=== PATIENT | female | born 1985 | race African-American/Black ===

== ENCOUNTER 2020-03-03 01:39 | Emergency (ER) | payer OTHER ==
[2020-03-03 01:44] VITALS: BMI 33.8
[2020-03-03] MEDS ORDERED: SODIUM CHLORIDE 0.9% 500 ML INFUS.BAG IV ONE (01:58)
[2020-03-03] MEDS ORDERED: ONDANSETRON 4 MG/2 ML VIAL IVPUSH ONE (01:58)
--- NOTE | 2020-03-03 02:02 | PDOC ---
History of Present Illness - General Chief Complaint: Pain, Acute Stated Complaint: FLANK PAIN Time Seen by Provider: 03/03/20 01:48 History Source: Patient - History of Present Illness Initial Comments: 03/03/20 02:58 35-year-old female complaining of right flank pain and dysuria for 1 day. Patient reported that the flank pain got more severe tonight prior to arrival. Patient is a [employer] employee. Patient reports nausea denies vomiting, abdominal pain, frequency of urination. No past medical history Past History - Medical History Allergies/Adverse Reactions: Allergies Allergy/AdvReac Type Severity Reaction Status Date / Time No Known Allergies Allergy Verified 03/03/20 01:44 Home Medications: Ambulatory Orders Ferrous Sulfate 325 mg PO DAILY 12/14/12 Ibuprofen [Motrin -] 600 mg PO QID PRN #28 tablet 12/18/13 Cephalexin [Keflex] 500 mg PO QID #16 capsule 12/25/13 Labetalol HCl [Normodyne -] 100 mg PO BID 12/25/13 Vit/Iron Fum/Folic AC [ Tablet] 1 each PO DAILY 12/25/13 Cefdinir [Omnicef -] 300 mg PO BID #20 capsule 03/03/20 Asthma: No Cancer: No Cardiac Disorders: No Diabetes: Yes (Type 2, not on meds) HTN: Yes Seizures: No Thyroid Disease: No - Reproductive History Is Patient Now?: No (#): 1 Para: 0 Cervical CA: No Dysfunctional Uterine Bleeding: No Ectopic : No Endometrial CA: No Polycystic Ovaries: No Therapeutic (s) & number: No Tubal Ligation: No Spontaneous : 0 - Psycho-Social/Smoking History Smoking Status: Yes Smoking History: Never smoked Have you smoked in the past 12 months: No Number of Cigarettes Smoked Daily: 6 Information on smoking cessation initiated: No 'Breaking Loose' booklet given: 12/25/13 - Substance Abuse Hx (Audit-C & DAST Scrn) How often the patient has a drink containing alcohol: Never Score: In Men: 4 or > Positive; In Women: 3 or > Positive: 0 Screen Result (Pos requires Nsg. Audit-10AR): Negative In the last yr the pt used illegal drug/Rx for NonMed reason: No Score: Yes response is considered Positive: 0 Screen Result (Positive result requires Nsg. DAST-10): Negative *Physical Exam - Vital Signs Last Vital Signs Temp Pulse Resp BP Pulse Ox 98.4 F 92 H 20 165/105 H 100 03/03/20 01:43 03/03/20 01:43 03/03/20 01:43 03/03/20 01:43 03/03/20 01:43 - Physical Exam General Appearance: Yes: Appropriately Dressed Respiratory/Chest: positive: Lungs Clear, Normal Breath Sounds Cardiovascular: positive: Regular Rhythm, Regular Rate Gastrointestinal/Abdominal: positive: Normal Bowel Sounds, Soft. negative: Tender (no abdominal tenderness) Musculoskeletal: positive: CVA Tenderness (R) Extremity: positive: Normal Capillary Refill, Normal Inspection, Normal Range of Motion Integumentary: positive: Normal Color, Dry, Warm Neurologic: positive: Fully Oriented, Alert, Normal Mood/Affect ED Treatment Course - LABORATORY CBC & Chemistry Diagram: 03/03/20 02:00 03/03/20 03:16 ED Progress Note - Progress Note Progress Note: 03/03/20 03:11 A: Pyelonephritis P: labs UA IVF zofran ceftrixone Discharge - Discharge Information Problems reviewed: Yes Clinical Impression/Diagnosis: Pyelonephritis Disposition: HOME - Additional Discharge Information Prescriptions: Cefdinir [Omnicef -] 300 mg PO BID #20 capsule - Follow up/Referral Referrals: Evin Rodriguez PA [Primary Care Provider] - - Patient Discharge Instructions Patient Printed Discharge Instructions: Kidney Infection Additional Instructions: Drink plenty of fluids Take ibuprofen every 6 hours as needed for pain Take cefdinir as prescribed Follow-up with your primary care doctor as soon as possible. You need to repeat urine test once your antibiotic is completed. We will call you if you're antibiotic needs to be changed. - Post Discharge Activity Work/Back to School Note: Back to Work
[2020-03-03] MEDS ORDERED: ONDANSETRON 4 MG/2 ML VIAL ONE (02:11)
[2020-03-03 02:40] LABS: BASO % 0.7 % (0-2.0); EOS % 1.9 % (0-4.5); HEMATOCRIT 35.7 % (32.4-45.2); HEMOGLOBIN 11.8 GM/dL (10.7-15.3); LYMPH % 18.9 % (8-40); MCH 36.6 pg (25.7-33.7); MCHC 32.9 g/dl (32.0-36.0); MEAN CELL VOLUME 111.1 fl (80-96); MEAN PLT VOLUME 7.6 fl (7.5-11.1); MONO % 8.9 % (3.8-10.2); NEUT % 69.6 % (42.8-82.8); PLATELET COUNT 179 K/MM3 (134-434); RBC 3.22 M/mm3 (3.60-5.2); RDW 16.5 % (11.6-15.6); WHITE BLOOD COUNT 6.7 K/mm3 (4.0-10.0)
[2020-03-03 02:43] LABS: EPI CELLS 25 /uL (0-25.1); HYALINE CASTS 5 /uL (0-3.1); PH,URINE 5.5 (5.0-8.0); URINE APPEARANCE TURBID; URINE BACTERIA >9,000 /uL (0-1359); URINE BILIRUBIN NEGATIVE (NEGATIVE); URINE COLOR DK YELLOW; URINE GLUCOSE (UA) NEGATIVE (NEGATIVE); URINE KETONE NEGATIVE (NEGATIVE); URINE LEUK ESTERASE 2+ (NEGATIVE); URINE NITRITE POSITIVE (NEGATIVE); URINE PROTEIN 3+ (NEGATIVE); URINE RBC 1770 /uL (0-23.9); URINE WBC 3113 /uL (0-25.8)
[2020-03-03] MEDS ORDERED: CEFTRIAXONE 1,000 MG in DEXTROSE 5%-WATER - 50 ML IVPB ONE (02:52)
[2020-03-03] MEDS ORDERED: CEFTRIAXONE 1 GM/50 ML BAG ONE (02:55)
[2020-03-03 04:00] LABS: ALBUMIN 3.3 g/dl (3.4-5.0); BILIRUBIN,TOTAL 0.3 mg/dL (0.2-1); BLOOD UREA NITROGEN 5.9 mg/dL (7-18); CALCIUM 8.5 mg/dL (8.5-10.1); CREATININE 0.7 mg/dL (0.55-1.3); POTASSIUM 3.5 mmol/L (3.5-5.1)
[2020-03-03 04:05] LABS: TOT PROT 6.6 g/dl (6.4-8.2)
[2020-03-03 04:25] VITALS: BP 153/95; PULSE 89; TEMP 98.1
== END 2020-03-03 04:40 | disposition home or self-care (01) ==
LOC: JER 01:39
PROC: 3E03329 Introduction of Other Anti-infective into Peripheral Vein, Percutaneous Approach (ICD-10-PCS; principal; 2020-03-03)
PROC: 3E033GC Introduction of Other Therapeutic Substance into Peripheral Vein, Percutaneous Approach (ICD-10-PCS; 2020-03-03)
DX: N11.1 Chronic obstructive pyelonephritis (principal)
CPT/HCPCS: 36415; 80053; 81003; 84703; 85025; 87086; 87186; 99284-25

== ENCOUNTER 2021-08-19 06:10 | Inpatient (IN) | payer OTHER ==
[2021-08-19] MEDS: ELECTROLYTE-148 SOLN 1,000 ML IV SCH ×2 (06:45→09:45)
[2021-08-19 07:04] LABS: BASO % 0.2 % (0-2.0); HEMOGLOBIN 10.6 GM/dL (10.7-15.3); LYMPH % 30.6 % (8-40); MCH 35.3 pg (25.7-33.7); MCHC 35.2 g/dl (32.0-36.0); MEAN CELL VOLUME 100.1 fl (80-96); MEAN PLT VOLUME 7.4 fl (7.5-11.1); MONO % 9.1 % (3.8-10.2); NEUT % 58.1 % (42.8-82.8); PLATELET COUNT 134 10^3/uL (134-434); RDW 15.8 % (11.6-15.6); WHITE BLOOD COUNT 4.1 K/mm3 (4.0-10.0)
[2021-08-19 07:19] LABS: CALCIUM 9.3 mg/dL (8.5-10.1)
[2021-08-19 07:20] LABS: BLOOD UREA NITROGEN 10.3 mg/dL (7-18)
[2021-08-19 07:23] LABS: CREATININE 0.5 mg/dL (0.55-1.3)
[2021-08-19 07:25] LABS: BILIRUBIN,TOTAL 0.5 mg/dL (0.2-1); TOT PROT 7.3 g/dl (6.4-8.2)
[2021-08-19 08:50] VITALS: BMI 35.0
[2021-08-19 08:52] LABS: ACTIVATED PTT 33.8 SECONDS (25.2-36.5); INR 0.97 (0.83-1.09); PROTHROMBIN TIME (PATIENT) 11.1 SEC (9.7-13.0)
[2021-08-19] MEDS ORDERED: OXYTOCIN 20 UNITS in 0.9% NS 20 UNIT/1,000 ML INFUS.BAG IV ONE (09:56)
[2021-08-19] MEDS ORDERED: morphine SULFATE/PF 1 MG/2 ML (2cc Syringe - QUVA) ONE (09:57)
[2021-08-19] MEDS ORDERED: BENZOCAINE 20% 57 GM BOTTLE TP PRN (10:13)
[2021-08-19] MEDS ORDERED: BENZOCAINE 28 GM HEMORRHOIDAL OINTMENT TP PRN (10:13)
[2021-08-19] MEDS ORDERED: METHYLERGONOVINE MALEATE 0.2 MG/1 ML AMP IM PRN (10:13)
[2021-08-19] MEDS ORDERED: ceFAZolin SODIUM 1 GM VIAL ONE (10:16)
[2021-08-19] MEDS ORDERED: ePHEDrine SULFATE 50 MG/1 ML AMPULE ONE (10:17)
[2021-08-19] MEDS ORDERED: PHENYLEPHRINE HCL 10 MG/1 ML SINGLE DOSE VIAL ONE (10:18)
[2021-08-19] MEDS ORDERED: OXYTOCIN 10 UNITS/ML VIAL ONE (10:27)
[2021-08-19] MEDS ORDERED: ONDANSETRON 4 MG/2 ML VIAL ONE (10:32)
[2021-08-19] MEDS ORDERED: MIDAZOLAM HCL 2 MG/2 ML SINGLE DOSE VIAL ONE (10:46)
[2021-08-19 11:44] LABS: CORD BASE EXCESS -1.4 mmol/L (0-2); CORD PCO2 61.3 mmHg (30-78); CORD pH 7.261 (7.14-7.44)
[2021-08-19] MEDS ORDERED: ONDANSETRON 4 MG/2 ML VIAL IVPUSH PRN (11:46)
[2021-08-19 11:47] LABS: CORD BASE EXCESS -4.2 mmol/L (0-2); CORD HCO3 21.4 mmHg (20-29); CORD PCO2 41.3 mmHg (30-78); CORD pH 7.333 (7.14-7.44)
[2021-08-19] MEDS: IBUPROFEN 800 MG/8 ML IJ IVPB PRN (16:22)
[2021-08-19 16:47] LABS: SYPHILIS W/ RPR CONF NON-REACTIVE (NONREACTIVE)
[2021-08-19 17:16] LABS: HIV INTERPRETATION NEGATIVE (NEGATIVE)
[2021-08-19] MEDS: OXYTOCIN 20 UNITS in 0.9% NS 20 UNIT/1,000 ML INFUS.BAG IV SCH (19:23)
[2021-08-19] MEDS ORDERED: PATIENT'S OWN MEDICATION (NON-FORMULARY) (Ferrous Sulfate [Ferrous Sulfate] 325 MG Tablet) PO SCH (22:00)
[2021-08-19] MEDS ORDERED: oxyCODONE HCL 5 MG TABLET PO PRN ×2 (22:13)
[2021-08-19] MEDS: FERROUS SO4 325 MG TABLET (FP) PO SCH (22:21)
[2021-08-19] MEDS: SIMETHICONE 80 MG TAB.CHEW (FP) PO PRN (22:22)
[2021-08-20] MEDS: IBUPROFEN 800 MG/8 ML IJ IVPB PRN (02:59)
[2021-08-20] MEDS: SIMETHICONE 80 MG TAB.CHEW (FP) PO PRN ×2 (06:26→20:42)
[2021-08-20 09:27] LABS: BASO % 0.2 % (0-2.0); EOS % 0.2 % (0-4.5); HEMATOCRIT 22.7 % (32.4-45.2); MCH 35.4 pg (25.7-33.7); MCHC 35.1 g/dl (32.0-36.0); MEAN CELL VOLUME 100.8 fl (80-96); MEAN PLT VOLUME 7.1 fl (7.5-11.1); MONO % 7.2 % (3.8-10.2); NEUT % 80.4 % (42.8-82.8); PLATELET COUNT 96 10^3/uL (134-434); RBC 2.25 M/mm3 (3.60-5.2); RDW 15.9 % (11.6-15.6); WHITE BLOOD COUNT 7.1 K/mm3 (4.0-10.0)
[2021-08-20] MEDS: IBUPROFEN 600 MG TABLET (FP) PO PRN ×2 (09:33→15:08)
[2021-08-20] MEDS: FERROUS SO4 325 MG TABLET (FP) PO SCH ×2 (09:34→21:44)
[2021-08-20] MEDS: PRENATAL VITAMINS W/ FOLIC ACID TABLET (FP) PO SCH (09:34)
[2021-08-20] MEDS ORDERED: PATIENT'S OWN MEDICATION (NON-FORMULARY) (Prenatal Vit/Iron Fum/Folic Ac [Prenatal Tablet] PO SCH (10:00)
[2021-08-20] MEDS ORDERED: BISACODYL 10 MG SUPP.RECT RC PRN (10:13)
[2021-08-20] MEDS: METOPROLOL TARTRATE 25 MG TABLET (FP) PO SCH (11:01)
[2021-08-20] MEDS: OXYTOCIN 20 UNITS in 0.9% NS 20 UNIT/1,000 ML INFUS.BAG IV SCH (20:30)
[2021-08-20] MEDS: ACETAMINOPHEN 325 MG TABLET (FP) PO PRN (20:41)
[2021-08-20] MEDS: SENNOSIDES/DOCUSATE COMBO (SENNA PLUS) TABLET (UD) PO PRN (21:44)
[2021-08-21] MEDS: IBUPROFEN 600 MG TABLET (FP) PO PRN ×3 (03:34→13:54)
[2021-08-21 08:00] LABS: BASO % 0.1 % (0-2.0); EOS % 1.1 % (0-4.5); HEMATOCRIT 22.8 % (32.4-45.2); LYMPH % 11.1 % (8-40); MCH 35.8 pg (25.7-33.7); MCHC 35.2 g/dl (32.0-36.0); MEAN CELL VOLUME 101.7 fl (80-96); MEAN PLT VOLUME 7.1 fl (7.5-11.1); MONO % 6.3 % (3.8-10.2); NEUT % 81.4 % (42.8-82.8); PLATELET COUNT 105 10^3/uL (134-434); RBC 2.24 M/mm3 (3.60-5.2); RDW 15.7 % (11.6-15.6); WHITE BLOOD COUNT 7.1 K/mm3 (4.0-10.0)
[2021-08-21 08:08] LABS: CREATININE 0.5 mg/dL (0.55-1.3); TOT PROT 5.6 g/dl (6.4-8.2)
[2021-08-21 08:10] LABS: BILIRUBIN,TOTAL 0.4 mg/dL (0.2-1)
[2021-08-21 08:12] LABS: ALBUMIN 2.2 g/dl (3.4-5.0); CALCIUM 7.7 mg/dL (8.5-10.1)
[2021-08-21] MEDS: SIMETHICONE 80 MG TAB.CHEW (FP) PO PRN ×2 (08:29→19:50)
[2021-08-21] MEDS: FERROUS SO4 325 MG TABLET (FP) PO SCH ×2 (09:12→21:27)
[2021-08-21] MEDS: PRENATAL VITAMINS W/ FOLIC ACID TABLET (FP) PO SCH (09:12)
[2021-08-21] MEDS: METOPROLOL TARTRATE 25 MG TABLET (FP) PO SCH (09:13)
[2021-08-21] MEDS: SENNOSIDES/DOCUSATE COMBO (SENNA PLUS) TABLET (UD) PO PRN (19:50)
[2021-08-21] MEDS: ACETAMINOPHEN 325 MG TABLET (FP) PO PRN (19:51)
[2021-08-22] MEDS: IBUPROFEN 600 MG TABLET (FP) PO PRN ×3 (05:53→21:58)
[2021-08-22] MEDS: SIMETHICONE 80 MG TAB.CHEW (FP) PO PRN ×2 (05:53→21:58)
[2021-08-22 08:03] LABS: BASO % 0.2 % (0-2.0); HEMATOCRIT 24.3 % (32.4-45.2); HEMOGLOBIN 8.3 GM/dL (10.7-15.3); LYMPH % 9.3 % (8-40); MCH 34.8 pg (25.7-33.7); MCHC 33.9 g/dl (32.0-36.0); MEAN CELL VOLUME 102.6 fl (80-96); MEAN PLT VOLUME 7.3 fl (7.5-11.1); MONO % 4.5 % (3.8-10.2); PLATELET COUNT 122 10^3/uL (134-434); RBC 2.37 M/mm3 (3.60-5.2); RDW 15.7 % (11.6-15.6); WHITE BLOOD COUNT 9.2 K/mm3 (4.0-10.0)
[2021-08-22] MEDS: PRENATAL VITAMINS W/ FOLIC ACID TABLET (FP) PO SCH (10:19)
[2021-08-22] MEDS: METOPROLOL TARTRATE 25 MG TABLET (FP) PO SCH (10:19)
[2021-08-22] MEDS: FERROUS SO4 325 MG TABLET (FP) PO SCH ×2 (10:19→21:55)
[2021-08-22] MEDS: SENNOSIDES/DOCUSATE COMBO (SENNA PLUS) TABLET (UD) PO PRN (21:55)
[2021-08-23 09:16] VITALS: BP 138/81; PULSE 97; TEMP 97.8
[2021-08-23] MEDS: IBUPROFEN 600 MG TABLET (FP) PO PRN (09:30)
[2021-08-23] MEDS: PRENATAL VITAMINS W/ FOLIC ACID TABLET (FP) PO SCH (09:30)
[2021-08-23] MEDS: FERROUS SO4 325 MG TABLET (FP) PO SCH (09:30)
[2021-08-23] MEDS: SIMETHICONE 80 MG TAB.CHEW (FP) PO PRN (09:30)
[2021-08-23] MEDS: METOPROLOL TARTRATE 25 MG TABLET (FP) PO SCH (10:53)
[2021-08-23] MEDS ORDERED: AMOX TR/POT CLAV 875MG/125MG TABLETS (FP) PO ONE (11:00)
== END 2021-08-23 13:12 | disposition home or self-care (01) | DRG 540 ==
LOC: JLDR 06:10 → J3W 12:45
PROVIDERS: ADMIT Obstetrics & Gynecology; ATTEND Obstetrics & Gynecology
PROC: 10D00Z1 Extraction of Products of Conception, Low, Open Approach (ICD-10-PCS; principal; 2021-08-19)
PROC: 0UT70ZZ Resection of Bilateral Fallopian Tubes, Open Approach (ICD-10-PCS; 2021-08-19)
PROC: 0UB00ZZ Excision of Right Ovary, Open Approach (ICD-10-PCS; 2021-08-19)
DX: O34.211 Maternal care for low transverse scar from previous cesarean delivery (principal); O99.02 Anemia complicating childbirth; D62 Acute posthemorrhagic anemia; Z3A.38 38 weeks gestation of pregnancy; Z37.0 Single live birth; O16.4 Unspecified maternal hypertension, complicating childbirth
CPT/HCPCS: 36415; 36600; 80053; 82803; 85025; 85610; 85730; 86762; 86780; 86850; 86900; 86901; 87340; 87389; 88302-TC; 88307-TC; C9803; U0003; U0005

== ENCOUNTER 2022-04-24 07:12 | Emergency (ER) | payer OTHER ==
[2022-04-24 07:26] VITALS: BMI 34.9
[2022-04-24] MEDS ORDERED: ALBUTEROL SO4 2.5/IPRATROPIUM 0.5 INH SOL 3 ML VIAL.NEB. NEB ONE ×4 (07:53→09:35)
[2022-04-24] MEDS ORDERED: ACETAMINOPHEN 500 MG TABLET (FP) PO ONE (07:53)
[2022-04-24] MEDS ORDERED: SODIUM CHLORIDE 1,000 ML IV STA (08:05)
[2022-04-24] MEDS ORDERED: ACETAMINOPHEN 500 MG TABLET (FP) ONE (08:12)
[2022-04-24 08:46] VITALS: RESP 20
[2022-04-24 08:50] LABS: VENOUS BASE EXCESS -0.8 mmol/L (-2-2); VENOUS O2 SATURATION 84.4 % (70-80); VENOUS PCO2 38.5 mmHg (38-52); VENOUS PH 7.406 (7.310-7.410)
[2022-04-24 08:54] LABS: BASO % 0.2 % (0-2.0); EOS % 3.9 % (0-4.5); HEMOGLOBIN 11.3 GM/dL (10.7-15.3); LYMPH % 13.3 % (8-40); MCH 31.4 pg (25.7-33.7); MCHC 33.3 g/dl (32.0-36.0); MEAN CELL VOLUME 94.2 fl (80-96); MEAN PLT VOLUME 6.6 fl (7.5-11.1); MONO % 7.3 % (3.8-10.2); NEUT % 75.3 % (42.8-82.8); PLATELET COUNT 246 10^3/uL (134-434); RBC 3.61 M/mm3 (3.60-5.2); RDW 14.9 % (11.6-15.6); WHITE BLOOD COUNT 6.5 K/mm3 (4.0-10.0)
[2022-04-24 09:03] VITALS: PULSE 104
[2022-04-24 09:04] LABS: CALCIUM 9.1 mg/dL (8.5-10.1)
[2022-04-24 09:05] LABS: ALBUMIN 3.9 g/dl (3.4-5.0); BLOOD UREA NITROGEN 6.6 mg/dL (7-18); MAGNESIUM 1.7 mg/dL (1.8-2.4)
[2022-04-24 09:07] LABS: CREATININE 0.7 mg/dL (0.55-1.3)
[2022-04-24 09:09] LABS: BILIRUBIN,TOTAL 0.5 mg/dL (0.2-1); TOT PROT 7.8 g/dl (6.4-8.2)
[2022-04-24] MEDS ORDERED: DEXAMETHASONE SOD PHOSPHATE 10 MG/1 ML VIAL IVPUSH ONE (10:10)
[2022-04-24] MEDS ORDERED: DEXAMETHASONE SOD PHOSPHATE 10 MG/1 ML VIAL ONE (10:17)
[2022-04-24 11:05] VITALS: BP 142/83; TEMP 97.5
== END 2022-04-24 11:20 | disposition home or self-care (01) ==
LOC: JER 07:12
PROC: 3E0F7GC Introduction of Other Therapeutic Substance into Respiratory Tract, Via Natural or Artificial Opening (ICD-10-PCS; principal; 2022-04-24)
PROC: 3E0337Z Introduction of Electrolytic and Water Balance Substance into Peripheral Vein, Percutaneous Approach (ICD-10-PCS; 2022-04-24)
PROC: 3E033GC Introduction of Other Therapeutic Substance into Peripheral Vein, Percutaneous Approach (ICD-10-PCS; 2022-04-24)
DX: R06.02 Shortness of breath (principal); J06.9 Acute upper respiratory infection, unspecified; R05.1 Acute cough
CPT/HCPCS: 0241U-QW; 36415; 71046-TC-FY; 80053; 82010; 82803; 83735; 84703; 85025; 93005; 93010; 99284-25; J1100

== ENCOUNTER 2024-08-30 05:23 | Day surgery (SDC) | payer OTHER ==
[2024-08-28 11:10] VITALS: BMI 28.3
[2024-08-30] MEDS ORDERED: PROPOFOL 20 ML ONE ×2 (10:56→13:23)
[2024-08-30] MEDS ORDERED: LIDOCAINE HCL/PF 2% SDV 5ML VIAL ONE (10:56)
[2024-08-30] MEDS ORDERED: MIDAZOLAM HCL 2 MG/2 ML SINGLE DOSE VIAL ONE ×2 (10:57→10:59)
[2024-08-30] MEDS ORDERED: KETOROLAC TROMETHAMINE 30 MG/1 ML VIAL ONE (10:58)
[2024-08-30] MEDS ORDERED: ONDANSETRON 4 MG/2 ML VIAL ONE (10:58)
[2024-08-30] MEDS ORDERED: DEXAMETHASONE SOD PHOSPHATE 4 MG/1 ML VIAL ONE (10:58)
[2024-08-30] MEDS ORDERED: ceFAZolin SODIUM 1 GM VIAL ONE (10:58)
[2024-08-30] MEDS ORDERED: LIDOCAINE HCL 1%, 10 MG/ML (20ML VIAL) ONE (11:04)
[2024-08-30] MEDS ORDERED: BUPIVACAINE HCL/PF 0.5% (5MG/ML) 10 ML VIAL ONE (11:04)
[2024-08-30] MEDS ORDERED: ACETAMINOPHEN INJECTION 100 ML ONE (11:38)
[2024-08-30] MEDS ORDERED: GLYCOPYRROLATE 0.2 MG/1 ML VIAL ONE (11:40)
[2024-08-30] MEDS ORDERED: ALBUTEROL SO4 HFA INHALER IH ONE (11:40)
[2024-08-30] MEDS ORDERED: ROCURONIUM BROMIDE 50 MG/5 ML SYRINGE ONE ×2 (11:43→12:42)
[2024-08-30] MEDS: ceFAZolin SODIUM 1 GM VIAL IVPB ONE (11:57)
[2024-08-30] MEDS ORDERED: HYDROmorphone HCl 2 MG/ML VIAL ONE (12:11)
[2024-08-30] MEDS ORDERED: oxyCODONE HCL 5 MG TABLET PO PRN ×2 (12:36)
[2024-08-30] MEDS: BUPIVACAINE HCL/PF 0.5% (5MG/ML) 10 ML VIAL IJ ONE (13:00)
[2024-08-30] MEDS: LIDOCAINE HCL 1%, 10 MG/ML (20ML VIAL) INF ONE (13:00)
[2024-08-30] MEDS ORDERED: SUGAMMADEX SODIUM 200 MG/2 ML VIAL ONE (13:25)
[2024-08-30] MEDS: LACTATED RINGERS SOLUTION 1,000 ML IV SCH (14:14)
[2024-08-30 15:06] VITALS: RESP 18
[2024-08-30] MEDS ORDERED: PROMETHAZINE HCL 25 MG/1 ML VIAL ONE (16:04)
[2024-08-30] MEDS: PROMETHAZINE HCL 25 MG/1 ML VIAL IVPB PRN (16:15)
[2024-08-30 18:25] VITALS: BP 172/86; PULSE 87; TEMP 97.3
== END 2024-08-30 18:29 | disposition home or self-care (01) ==
LOC: JASU-SURG 05:23
PROVIDERS: ATTEND Surgery
PROC: 0JB80ZZ Excision of Abdomen Subcutaneous Tissue and Fascia, Open Approach (ICD-10-PCS; principal; 2024-08-30 11:00)
DX: N80.C10 Endometriosis of the anterior abdominal wall, subcutaneous tissue (principal)
CPT/HCPCS: 81025; 88305-TC; 88342-TC; 94760; J0131